=== PATIENT | female | born 1990 | race Caucasian/White ===

== ENCOUNTER 2018-07-07 10:06 | Emergency (ER) | payer SELFPAY ==
[~2018-07-07] VITALS: Ht 170.2 cm; Wt 83.9 kg
[2018-07-07] MEDS ORDERED: IV NORMAL SALINE 1000ML BAG 1,000 ML IV ONE (10:15)
[2018-07-07 10:40] LABS: BASO % 1 % (0-3); EOS # 0.1 x10^3/uL (0.0-0.7); EOS % 2 % (0-3); HEMATOCRIT 43.6 % (36.0-47.0); HEMOGLOBIN 15.1 g/dL (12.0-15.5); LYMPH % 48 % (24-48); MEAN CORPUSCULAR HEMOGLOBIN 29 pg (25-35); MEAN CORPUSCULAR HGB CONC 35 g/dL (31-37); MEAN CORPUSCULAR VOLUME 85 fL (79-100); MONO # 0.5 x10^3/uL (0.0-1.1); MONO % 8 % (0-9); NEUT # 2.6 x10^3uL (1.8-7.7); NEUT % 41 % (31-73); PLATELET COUNT 329 x10^3/uL (140-400); RED BLOOD COUNT 5.15 x10^6/uL (3.50-5.40); RED CELL DISTRIBUTION WIDTH 13.6 % (11.5-14.5); WHITE BLOOD COUNT 6.2 x10^3/uL (4.0-11.0)
[2018-07-07 10:46] LABS: CALCIUM 9.7 mg/dL (8.5-10.1); CREATININE 1.1 mg/dL (0.6-1.0); POTASSIUM 3.5 mmol/L (3.5-5.1)
[2018-07-07 10:52] LABS: ALBUMIN 3.7 g/dL (3.4-5.0); ALBUMIN/GLOBULIN RATIO 0.9 (1.0-1.7); TOTAL BILIRUBIN 0.6 mg/dL (0.2-1.0); TOTAL PROTEIN 7.8 g/dL (6.4-8.2)
--- NOTE | 2018-07-07 10:52 | PHYS DOC ---
Adult General Chief Complaint Chief Complaint: ALTERED MENTAL STATUS HPI HPI 27-year-old female presents to ER via EMS who reports patient was walking down the street in dazed condition/acting bizarre and so EMS was contacted by bystander. Pt on arrival is alert to self and repeatedly states "I'm ". She admits to Heroin use this morning with bilat. track kramer in [facility] where she reports she injected today. On arrival she is not aggressive however she is anxious/restless. She is poor historian and provides no past hx/surg. information. Review of Systems Review of Systems Unable to obtain ROS with pt's altered MS/behavior Current Medications Current Medications Current Medications Medications (Trade) Dose Ordered Sig/Miki Start Time Stop Time Status Last Admin Dose Admin Lorazepam (Ativan) 1 mg 1X ONCE 07/07/18 10:15 07/07/18 10:25 DC 07/07/18 10:54 1 MG Sodium Chloride 1,000 ml @ 1,000 mls/hr 1X ONCE 07/07/18 10:15 07/07/18 11:14 DC 07/07/18 10:57 1,000 MLS/HR Allergies Allergies Allergies Coded Allergies Type Severity Reaction Last Updated Verified No Known Drug Allergies 07/07/18 No Physical Exam Physical Exam Constitutional: Well developed, well nourished, no acute distress, non-toxic appearance. Poor hygiene HENT: Normocephalic, atraumatic, bilateral ears normal, mucous membranes pink/ dry, no oral exudates, nose normal. [] Eyes: 4mm PERRLA, no nystagmus, conjunctiva normal, no discharge. [] Neck: Normal range of motion, no tenderness, supple Cardiovascular: Tachycardic heart rate/rhythm, no murmur [] Lungs & Thorax: Bilateral breath sounds clear to auscultation. Resp. equal/ nonlabored Abdomen: Bowel sounds normal, soft, no tenderness, no masses, no pulsatile masses. [] Skin: Warm, dry, no erythema, no rash. [] Back: No tenderness, no CVA tenderness. [] Extremities: No tenderness, no cyanosis, no clubbing, ROM intact, no edema. [] Neurologic: Alert and oriented X 2, normal motor function, normal sensory function, no focal deficits noted. [] Psychologic: In dazed state- repeatedly stating "I'm "- alert to self and is able to confirm birthday- no uncontrollable behavior and pt is cooperative with exam Current Patient Data Vital Signs Vital Signs Date Time Temp Pulse Resp B/P (MAP) Pulse Ox O2 Delivery O2 Flow Rate FiO2 07/07/18 12:29 105 24 100 07/07/18 10:06 98.2 127/79 (95) Room Air 98.2 Lab Values Laboratory Tests Test 07/07/18 10:30 White Blood Count 6.2 x10^3/uL (4.0-11.0) Red Blood Count 5.15 x10^6/uL (3.50-5.40) Hemoglobin 15.1 g/dL (12.0-15.5) Hematocrit 43.6 % (36.0-47.0) Mean Corpuscular Volume 85 fL (79-100) Mean Corpuscular Hemoglobin 29 pg (25-35) Mean Corpuscular Hemoglobin Concent 35 g/dL (31-37) Red Cell Distribution Width 13.6 % (11.5-14.5) Platelet Count 329 x10^3/uL (140-400) Neutrophils (%) (Auto) 41 % (31-73) Lymphocytes (%) (Auto) 48 % (24-48) Monocytes (%) (Auto) 8 % (0-9) Eosinophils (%) (Auto) 2 % (0-3) Basophils (%) (Auto) 1 % (0-3) Neutrophils # (Auto) 2.6 x10^3uL (1.8-7.7) Lymphocytes # (Auto) 3.0 x10^3/uL (1.0-4.8) Monocytes # (Auto) 0.5 x10^3/uL (0.0-1.1) Eosinophils # (Auto) 0.1 x10^3/uL (0.0-0.7) Basophils # (Auto) 0.0 x10^3/uL (0.0-0.2) Maternal Serum HCG Beta Subunit < 1 mIU/mL (0-5) Sodium Level 141 mmol/L (136-145) Potassium Level 3.5 mmol/L (3.5-5.1) Chloride Level 101 mmol/L (98-107) Carbon Dioxide Level 28 mmol/L (21-32) Anion Gap 12 (6-14) Blood Urea Nitrogen 13 mg/dL (7-20) Creatinine 1.1 mg/dL (0.6-1.0) H Estimated GFR (Cockcroft-Gault) 60.0 BUN/Creatinine Ratio 12 (6-20) Glucose Level 92 mg/dL (70-99) Calcium Level 9.7 mg/dL (8.5-10.1) Total Bilirubin 0.6 mg/dL (0.2-1.0) Aspartate Amino Transferase (AST) 10 U/L (15-37) L Alanine Aminotransferase (ALT) 14 U/L (14-59) Alkaline Phosphatase 49 U/L (46-116) Troponin I Quantitative < 0.017 ng/mL (0.000-0.055) Total Protein 7.8 g/dL (6.4-8.2) Albumin 3.7 g/dL (3.4-5.0) Albumin/Globulin Ratio 0.9 (1.0-1.7) L Ethyl Alcohol Level < 10 mg/dL (0-10) Laboratory Tests 07/07/18 10:30 Laboratory Tests 07/07/18 10:30 EKG EKG [] Radiology/Procedures Radiology/Procedures [] Course & Med Decision Making Course & Med Decision Making Pertinent Labs reviewed. (See chart for details) 1145: On reevaluation following IV fluids and dose of Ativan patient appears more alert. Patient states she is aware she is at the hospital uncertain of [facility]. Patient knows her birthdate/what year it is and denies any pain or complaints at this time. 1305: RN at bedside discussing rehab options with pt. Pt is A&Ox3 and is tearful. She is apologetic if her behavior was bad while in ER. She is discussing her 10 yr drug addiction and desire for rehab. She reports she is not wanting to be placed today into a facility and is wanting discharged from ER as her friend has arrived to pick her up. Pt denies pain. Pt denies SI/HI and reports she has not been sleeping for past 4 days. She reports she plans to discuss her drug addiction with her parents and seek outpt therapy. Will provide pt with outpt referral info for ne places and community resources. Discussed with pt if she has any SI or thoughts of self harm or concerns to return to ER. Discharge instructions were discussed and education provided him to return to ER for. Pt was provided with food/drinks while waiting for her ride - she is sitting up in bed and eating. Her behavior is appropriate and she is in no visible distress. After discussion she appears less tearful and verbalizes understanding on risky behavior with drugs. Test results were discussed with her. Encouraged fluid increase after discharge. Drug cessation was discussed. Dragon Disclaimer Dragon Disclaimer This electronic medical record was generated, in whole or in part, using a voice recognition dictation system. Departure Departure Impression: Primary Impression: Drug abuse Disposition: 01 HOME, SELF-CARE Condition: STABLE Patient Instructions: Drug Abuse and Addiction-SportsMed, Heroin Abuse and Withdrawal Additional Instructions: As discussed you should get set up with outpatient drug therapy for further care. Avoid drug use. Drink plenty of water. With any suicidal thoughts return to Emergency Department or seek medical help immediately. DORITA WILEY APRN Jul 07, 2018 10:52
[2018-07-07 12:29] VITALS: BP 115/87
== END 2018-07-07 13:34 | disposition home or self-care (01) ==
LOC: ER 10:06
DX: F11.10 Opioid abuse, uncomplicated (principal); R41.82 Altered mental status, unspecified
CPT/HCPCS: 36415; 80053; 84484; 84702; 85025; 96361; 96374; 99284; G0480; J2060; J7030